=== PATIENT | male | born 1990 | race Caucasian/White ===

== ENCOUNTER → 2020-07-22 09:47 | Outpatient (BNVA) | payer OTHER, SELFPAY | PROVIDERS: Family Provider Nurse Practitioner; PCP Nurse Practitioner; Visit Provider Podiatrist Foot & Ankle Surgery | DX: M25.571 Pain in right ankle and joints of right foot (principal); S82.841D Displaced bimalleolar fracture of right lower leg, subsequent encounter for closed fracture with routine healing; X58.XXXD Exposure to other specified factors, subsequent encounter | CPT/HCPCS: 73610 ==

== ENCOUNTER 2024-07-15 14:02 | Outpatient (CLI) | payer OTHER, SELFPAY ==
--- NOTE | 2024-07-15 14:09 | CT_ITS ---
WS: [id number] CT ABDOMEN WITH AND WITHOUT CONTRAST HISTORY: LIVER ENZYMES CONTINUING TO ELEVATE Multiphase CT with hepatic protocol. Oral contrast has not been provided. Coronal and sagittal reform ats are submitted. All CT scans at [facility] use at least one of these dose optimization bharati hniques: automated exposure control; mA and/or kV adjustment per patient size (includes targeted exam s where dose is matched to clinical indication); or iterative reconstruction. IV CONTRAST: Omnipaque 350; 100 mL IV. Oral contrast: No DLP: 1767.53 mGy.cm COMPARISON: None available. Lower thorax: Calcified granulomata at the lung bases. Heart is normal size. No hiatal hernia. Liver/biliary system: Normal size liver. No intrahepatic dilatation. No mass identified. There is mil d diffuse hepatic steatosis. Normal portal vein. Gallbladder: Normal. No gallstones or wall thickening. No pericholecystic fluid. Pancreas: Normal size pancreas and pancreatic duct. No adjacent inflammation. Spleen: Normal size with a few granulomata. Adrenal glands: Normal RIGHT adrenal gland. Focal calcification with no soft tissue mass involving th e lateral limb of the LEFT adrenal gland. Right kidney: Normal size kidney. No obstruction or solid mass. Benign cyst lower pole measures 2.6 x 2.3 cm. No uroepithelial lesion within the kidney. Left kidney: Normal size. Cortical cyst measures 9 x 8 mm in the anterior mid kidney. No solid mass o r uroepithelial lesions. Aorta: Normal. Normal mesenteric arteries. Lymphadenopathy: None. Free fluid: None. GI tract: As visualized no abnormality. There is no obstruction. Abdominal wall: Unremarkable abdominal wall. No hernia. Visualized osseous structures: Unremarkable. CT/CT abdomen wo/w con [id number] IMPRESSION: 1. Mild diffuse hepatic steatosis. 2. No hepatic mass or hepatobiliary dilatation. 3. Normal pancreas. 4. Bilateral renal cysts.
[2024-07-15] MEDS: iohexol 350 mg/mL 500 mL Btl (per mL) IV (14:27)
== END 2024-07-15 14:03 | disposition home or self-care (01) ==
LOC: RAD 14:05
PROVIDERS: Family Provider Nurse Practitioner; PCP Nurse Practitioner; Visit Provider Nurse Practitioner
DX: Z01.89 Encounter for other specified special examinations (principal); K76.0 Fatty (change of) liver, not elsewhere classified; N28.1 Cyst of kidney, acquired; J98.4 Other disorders of lung; R93.89 Abnormal findings on diagnostic imaging of other specified body structures; E27.49 Other adrenocortical insufficiency
CPT/HCPCS: 74170

== ENCOUNTER 2024-07-26 07:58 | Outpatient (CLI) | payer OTHER, SELFPAY ==
--- NOTE | 2024-07-26 08:00 | CT_ITS ---
WS: [id number] CT chest w con* [id number] HISTORY: PULMONARY NODULE ON XRAY TECHNIQUE: Axial imaging performed through the thorax. Coronal and sagittal reformats are submitted. All CT scans at [facility] use at least one of these dose optimization techniques: automated exposure control; mA and/or kV adjustment per patient size (includes targeted exams where dose is mat ched to clinical indication); or iterative reconstruction. CONTRAST: Omnipaque 350; 100 mL IV. DLP: 416.83 mGy.cm COMPARISON: CT 07/15/2024 Lungs and central airway: Normally aerated lungs. Bilateral calcified lower lobe granulomata. There i s a noncalcified 4 mm nodule in the RIGHT middle lobe. Benign-appearing 5 mm LEFT perifissural nodule . Perifissural nodule appears partially calcified. No pneumonia. Pleura: Normal. No pleural effusion. Heart and pericardium: Normal size heart with no pericardial effusion. Mediastinum and mitzi: Partially calcified subcarinal lymph node. No adenopathy. Vessels: Normal size aortic and pulmonary artery. No coronary artery calcifications. Enlargement of t he azygos vein. Continuation of enlarged azygos vein bifurcates at the level of the diaphragm. Normal variant associated with abnormal hepatic segment of the IVC. Chest wall and lower neck: No soft tissue masses. Upper abdomen: Bilateral prominent hemiazygos veins, normal variant. Small caliber IVC. Normal liver. No adrenal mass. Osseous structures: No destructive process. CT/CT chest w con* [id number] IMPRESSION: 1. A non-calcified 4 mm solid nodule in the right middle lobe is indeterminate. Indeterminate solid pulmonary nodule measuring 4 mm. In a low-risk patient w ith a nodule <6 mm, recommend no follow-up. 2. Prior granulomatous disease. 3. No pneumonia.
== END 2024-07-26 07:59 | disposition home or self-care (01) ==
LOC: RAD 07:58
PROVIDERS: Family Provider Nurse Practitioner; PCP Nurse Practitioner; Visit Provider Nurse Practitioner
DX: R91.1 Solitary pulmonary nodule (principal); D71 Functional disorders of polymorphonuclear neutrophils; J84.10 Pulmonary fibrosis, unspecified; I89.8 Other specified noninfective disorders of lymphatic vessels and lymph nodes; I87.8 Other specified disorders of veins; R93.5 Abnormal findings on diagnostic imaging of other abdominal regions, including retroperitoneum
CPT/HCPCS: 71260

== ENCOUNTER → 2024-08-13 12:54 | Outpatient (BNVA) | payer OTHER, SELFPAY | PROVIDERS: Family Provider Nurse Practitioner; PCP Nurse Practitioner; Visit Provider Nurse Practitioner Family | DX: L21.8 Other seborrheic dermatitis (principal); L81.4 Other melanin hyperpigmentation; D22.62 Melanocytic nevi of left upper limb, including shoulder; D48.5 Neoplasm of uncertain behavior of skin | CPT/HCPCS: 11102; 99204 ==